=== PATIENT | female | born 1990 | race Caucasian/White ===

== ENCOUNTER → 2016-05-07 | Outpatient (CLI) | payer OTHER ==
[~2016-05-07] MED LIST: Gadobutrol 10 mMOL/10 ML SDV IVPUSH STA
--- NOTE | 2016-05-07 15:38 | MR ---
EXAMINATION: MRI lumbar spine with and without contrast HISTORY: Question Cauda equina COMPARISON: None TECHNIQUE: Multiplanar and multisequence images obtained through the lumbar spine before and followi ng the administration of Gadavist. FINDINGS: The lumbar spinal alignment is normal. The vertebral body heights and disc spaces appear w ell-maintained. There is likely a small focus enhancement noted within the distal spinal cord band straightener ior to T11, only partially imaged. The conus terminates at L1. The visualized retroperitoneal struct ures appear normal. No abnormal bone marrow signal. No significant disc bulge, spinal canal stenosis, neural foraminal stenosis. IMPRESSION: 1. Probable small focus of enhancement within the spinal cord posterior to T11. This is only include d on the sagittal images. This could represent a demyelinating process. Follow-up with MRI images of the thoracic and cervical spine may be beneficial.
--- NOTE | 2016-05-07 15:45 | MR ---
EXAMINATION: MRI of the brain with and without contrast. TECHNIQUE: Multiplanar and multisequence imaging of the brain without and following the administrati on of 6 mL of Gadavist. COMPARISON: 12/23/2013. HISTORY: Abnormal findings.. FINDINGS: Cerebral hemispheres and the deep nuclei are without hemorrhage, mass, edema, enhancement or atrophy . There are several small subtle areas of FLAIR signal abnormality within the periventricular white matter. These are subtle however several are new since the prior MRI. No enhancement or abnormal di ffusion restriction identified. No extraaxial collections or hemorrhage. The ventricular system is of normal size and configuration without hydrocephalus. The brainstem and cerebellum are without hemorrhage, mass, edema, gliosis, en hancement or atrophy. Carotid basilar artery flow voids are intact. The venous sinuses are patent. The otomastoid airspaces are clear. No internal auditory canal or cerebellopontine angle masses or enhancement. The paranasal sinuses are clear. Globes, optic nerves, orbital apices, optic chiasm, optic tracts, and visual cortices are unremarka ble. The pituitary and sella turcica are unremarkable. No meningeal enhancement. The craniocervical junction is unremarkable. No siderosis or evidence of vascular malformation. The calvarium is intact. IMPRESSION: 1. There are a few subtle periventricular white matter hypodensities, these have slightly increased in comparison to the previous MRI from 2003. A demyelinating process, such as MS, is a consideration . No abnormal enhancement to suggest active disease.
== END ==
LOC: MW.MRI 08:19
PROVIDERS: ATTEND Family Medicine
DX: R93.0 Abnormal findings on diagnostic imaging of skull and head, not elsewhere classified (principal); M62.81 Muscle weakness (generalized)
CPT/HCPCS: 70553; 72158; A9585

== ENCOUNTER → 2016-05-30 | Outpatient (CLI) | payer OTHER | LOC: MW.CHOBGYN 14:30 | PROVIDERS: ATTEND Nurse Practitioner Women's Health | DX: N94.9 Unspecified condition associated with female genital organs and menstrual cycle (principal) | CPT/HCPCS: 87480; 87510; 87660 ==

== ENCOUNTER 2016-08-14 20:59 | Emergency (ER) | payer OTHER ==
[2016-08-14] MEDS ORDERED: Sodium Chloride 0.9% 1,000 ML IV ONE (21:15)
[2016-08-14] MEDS ORDERED: Sodium Chloride 0.9% 10 ML Syringe FLUSH PRN ×2 (21:15→21:38)
[2016-08-14] MEDS ORDERED: Sodium Chloride 0.9% 2.5 ML Syringe FLUSH PRN ×2 (21:15→21:38)
--- NOTE | 2016-08-14 21:19 | EDM.PDOC ---
ED HPI GENERAL MEDICAL PROBLEM - General Chief Complaint: Headache Stated Complaint: PT HAS MIGRAINE Time Seen by Provider: 08/14/16 21:13 Source of Information: Reports: Patient History Limitations: Reports: No Limitations - History of Present Illness INITIAL COMMENTS - FREE TEXT/NARRATIVE: HISTORY AND PHYSICAL: [26-year-old female presenting with a headache that is worse when standing up than laying down] History of Present Illness: [Patient had a spinal tap yesterday, headaches began about 2 hours after the spinal tap. Patient called her neurologist today and was told to take some ibuprofen now for about an hour] Review of Systems: As per history of present illness and below otherwise all systems reviewed and negative. Past medical history: As per history of present illness and as reviewed below otherwise noncontributory. Surgical history: As per history of present illness and as reviewed below otherwise noncontributory. Social history: No reported history of drug or alcohol abuse. Family history: As per history of present illness and as reviewed below otherwise noncontributory. Physical exam: Alert and oriented female. pain 8-9/10. HEENT: Atraumatic, normocehpalic, pupils reactive, negative for conjunctival pallor or scleral icterus, mucous membranes moist, throat clear, neck supple, nontender, trachea midline. Lungs: Clear to auscultation, breath sounds equal bilaterally, chest non tender. Heart: S1S2, regular, negative for clicks, rubs, or JVD. Abdomen: Soft, nondistended, nontender. Negative for masses or hepatossplenmegaly. Negative for costovertebral tenderness. Pelvis: Stable nontender. Genitourinary: Deferred. Rectal: Deferred Extremities: Atraumatic, negative for cords or calf pain. Neurovascular unremarkable. Neuro: Awake, alert, oriented. Cranial nerves II through XII unremarkable. Cerebellum unremarkable. Motor and sensory unremarkable throughout. Exam nonfocal. Discussed case with Dr. Infante who is in agreement and anesthesia was notified. Vikash Mauricio CRNA was notified and he will come in and see this patient Diagnostics: [] Therapeutics: [IV fluid] Impression: [Headache post spinal tap] Plan: [Anesthesiology here for treatment of this headache] Definitive disposition and diagnosis as appropriate pending reevaluation and review of above. Onset: Today head Pain Score (Numeric/FACES): 8 - Related Data Allergies Allergy/AdvReac Type Severity Reaction Status Date / Time amoxicillin [Amoxicillin] Allergy Rash Verified 08/14/16 21:04 Penicillins Allergy Rash Verified 08/14/16 21:04 Home Meds: Home Meds ClonazePAM [KlonoPIN] 1 mg PO BEDTIME 12/13/13 [History] Norethindrone-E.estradiol-Iron [Lo Loestrin Fe 1-10] 1 each PO DAILY 12/13/13 [ History] Past Medical History HEENT History: Reports: None Cardiovascular History: Reports: None Respiratory History: Reports: None Gastrointestinal History: Reports: None Genitourinary History: Reports: None 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: Musculoskeletal History: Reports: None Neurological History: Reports: None Psychiatric History: Reports: None Endocrine/Metabolic History: Reports: None Hematologic History: Reports: None Dermatologic History: Reports: None - Infectious Disease History Infectious Disease History: Reports: Chicken Pox - Past Surgical History HEENT Surgical History: Reports: None Social & Family History - Family History Family Medical History: Noncontributory - Tobacco Use Smoking Status *Q: Current Every Day Smoker Years of Tobacco use: 12 Packs/Tins Daily: 1 Used Tobacco, but Quit: No Month Tobacco Last Used: November - Alcohol Use Days Per Week of Alcohol Use: 2 Number of Drinks Per Day: 1 Total Drinks Per Week: 2 - Recreational Drug Use Recreational Drug Use: No ED ROS GENERAL - Review of Systems Review Of Systems: ROS reveals no pertinent complaints other than HPI. - Physical Exam Exam: See Below Course - Vital Signs Last Recorded V/S: Last Vital Signs Temp 36.3 C 08/14/16 21:05 Pulse 105 H 08/14/16 21:05 Resp 18 08/14/16 21:05 BP 143/96 H 08/14/16 21:05 Pulse Ox 98 08/14/16 21:05 - Orders/Labs/Meds Orders: Active Orders 24 hr Category Date Time Status Verify Patient Consent Obtain [RC] ASDIRECTED Care 08/14/16 21:38 Active Sodium Chloride 0.9% [Normal Saline] 1,000 ml Med 08/14/16 21:15 Active IV STAT Sodium Chloride 0.9% [Saline Flush] Med 08/14/16 21:15 Active 10 ml FLUSH ASDIRECTED PRN Sodium Chloride 0.9% [Saline Flush] Med 08/14/16 21:38 Active 10 ml FLUSH ASDIRECTED PRN Sodium Chloride 0.9% [Saline Flush] Med 08/14/16 21:15 Active 2.5 ml FLUSH ASDIRECTED PRN Sodium Chloride 0.9% [Saline Flush] Med 08/14/16 21:38 Active 2.5 ml FLUSH ASDIRECTED PRN Medication Administration Instruction [OM.PC] Routine Oth 08/14/16 21:38 Ordered Peripheral IV Insertion Adult [OM.PC] Routine Oth 08/14/16 21:38 Ordered Saline Lock Insert [OM.PC] Stat Oth 08/14/16 21:14 Ordered Medication Orders Sodium Chloride (Normal Saline) 1,000 mls @ 999 mls/hr IV STAT ONE Stop: 08/14/16 22:15 Last Admin: 08/14/16 21:25 Dose: 999 mls/hr Sodium Chloride (Saline Flush) 10 ml FLUSH ASDIRECTED PRN PRN Reason: Keep Vein Open Sodium Chloride (Saline Flush) 2.5 ml FLUSH ASDIRECTED PRN PRN Reason: Keep Vein Open Sodium Chloride (Saline Flush) 10 ml FLUSH ASDIRECTED PRN PRN Reason: Keep Vein Open Sodium Chloride (Saline Flush) 2.5 ml FLUSH ASDIRECTED PRN PRN Reason: Keep Vein Open Labs: Laboratory Tests 08/14/16 Range/Units 21:23 Plt Count 255 (150-400) K/uL Meds: Medications Generic Name Dose Route Start Last Admin Trade Name Freq PRN Reason Stop Dose Admin Sodium Chloride 1,000 mls @ 999 mls/hr 08/14/16 21:15 08/14/16 21:25 Normal Saline IV 08/14/16 22:15 999 mls/hr STAT ONE Administration Sodium Chloride 10 ml 08/14/16 21:15 Saline Flush FLUSH ASDIRECTED PRN Keep Vein Open Sodium Chloride 2.5 ml 08/14/16 21:15 Saline Flush FLUSH ASDIRECTED PRN Keep Vein Open Sodium Chloride 10 ml 08/14/16 21:38 Saline Flush FLUSH ASDIRECTED PRN Keep Vein Open Sodium Chloride 2.5 ml 08/14/16 21:38 Saline Flush FLUSH ASDIRECTED PRN Keep Vein Open Departure - Departure Time of Disposition: 22:06 Disposition: Home, Self-Care 01 Condition: good Clinical Impression: Post-procedural headache Qualifiers: Encounter type: initial encounter Qualified Code(s): T81.89XA - Other complications of procedures, not elsewhere classified, initial encounter; R51 - Headache - Discharge Information Forms: ED Department Discharge Additional Instructions: The following information is given to patients seen in the emergency department who are being discharged to home. This information is to outline your options for follow-up care. We provide all patients seen in our emergency department with a follow-up referral. The need for follow-up, as well as the timing and circumstances, are variable depending upon the specifics of your emergency department visit. If you don't have a primary care physician on staff, we will provide you with a referral. We always advise you to contact your personal physician following an emergency department visit to inform them of the circumstance of the visit and for follow-up with them and/or the need for any referrals to a consulting specialist. The emergency department will also refer you to a specialist when appropriate. This referral assures that you have the opportunity for followup care with a specialist. All of these measure are taken in an effort to provide you with optimal care, which includes your followup. Under all circumstances we always encourage you to contact your private physician who remains a resource for coordinating your care. When calling for followup care, please make the office aware that this follow-up is from your recent emergency room visit. If for any reason you are refused follow-up, please contact the [facility] emergency department at and asked to speak to the emergency department charge nurse. Instructions as per anesthesia - My Orders Last 24 Hours: My Active Orders 08/14/16 21:14 Saline Lock Insert [OM.PC] Stat 08/14/16 21:15 Sodium Chloride 0.9% [Normal Saline] 1,000 ml IV STAT Sodium Chloride 0.9% [Saline Flush] 10 ml FLUSH ASDIRECTED PRN Sodium Chloride 0.9% [Saline Flush] 2.5 ml FLUSH ASDIRECTED PRN - Assessment/Plan Last 24 Hours: My Active Orders 08/14/16 21:14 Saline Lock Insert [OM.PC] Stat 08/14/16 21:15 Sodium Chloride 0.9% [Normal Saline] 1,000 ml IV STAT Sodium Chloride 0.9% [Saline Flush] 10 ml FLUSH ASDIRECTED PRN Sodium Chloride 0.9% [Saline Flush] 2.5 ml FLUSH ASDIRECTED PRN
--- NOTE | 2016-08-14 21:48 | PCM.SN ---
- Free Text/Narrative Note: Called by ER, pt arrived with complaints of JAMES. Pt reports that she had a spinal tap performed yesterday and developed a headache about two hours after the procedure. Pt reports her headache gets significantly worse when standing and somewhat better when laying down. She also reports some mild photophobia at this time. Allergies: PCN, amoxicillin Home RX: Klonopin at [facility] - reviewed PMH: Currently being worked up for MS. Negative for CV, Pulm, GI, , Liver, Pancreas, Thyroid disease. Explained to pt that this is likely a spinal headache. Explained blood patch procedure including risks and benefits. Pt wishes to proceed at this time.
--- NOTE | 2016-08-14 22:51 | PCM.SN ---
- Free Text/Narrative Note: Procedure Note Epidural Blood Patch After informed consent was obtained. Pt was placed Right lateral position. Using sterile technique, pt was prepped using betadine, sterile drape was placed. Spine was palpated and L3-4 was identified. 1% Lidocaine was infiltrated. 17g Touhy needle was introduced using loss of resistance technique. At 6 cm of depth loss of resistance was obtained. Then 10mL of venous blood was obtained sterilely by Dr. Aguayo and 6mL of arterial blood was obtained sterilely by Rere Mauricio CRNA that was injected through the epidural needle. All aspects of the procedure were completed while maintaining strict sterile technique. At the conclusion of the procedure that pt notes that in the supine position she no longer has a headache and her photophobia has resolved. Pt tolerated all aspects of the procedure well. VSS throughout as well.
[2016-08-14 23:11] VITALS: BP 120/75
== END 2016-08-14 23:09 | disposition home or self-care (01) ==
LOC: MW.ED 20:59
DX: G97.1 Other reaction to spinal and lumbar puncture (principal); Z98.890 Other specified postprocedural states; F17.210 Nicotine dependence, cigarettes, uncomplicated; Z88.0 Allergy status to penicillin; Z88.1 Allergy status to other antibiotic agents
CPT/HCPCS: 36415; 85049; 96360; 96361; 99284; J7040; 99283

== ENCOUNTER 2018-11-18 16:01 | Emergency (ER) | payer OTHER ==
--- NOTE | 2018-11-18 16:12 | EDM.PDOC ---
ED HPI GENERAL MEDICAL PROBLEM - General Chief Complaint: Cardiovascular Problem Stated Complaint: EKG WAS WEIRD FROM THE DOCTOR'S OFFICE Time Seen by Provider: 11/18/18 16:05 Source of Information: Reports: Patient History Limitations: Reports: No Limitations - History of Present Illness INITIAL COMMENTS - FREE TEXT/NARRATIVE: HISTORY AND PHYSICAL: History of present illness: Patient is a 28-year-old female presenting to the emergency room with complaints of chest pain, left shoulder pain, and upper left back pain. She states that she was informed to present to the emergency room at her appointment with Dr. Aparicio at [facility] this afternoon due to an abnormal EKG showing sinus tachycardia. She states that she is not currently having chest pain, however after using a wheelbarrow that tipped over 3 weeks ago, one week later she started having chest pain that goes into her shoulder, down her arm and hands, into her left ribs, and up into her back. She denies numbness, tingling, nausea, vomiting, dizziness, abdominal pain, or shortness of breath. She states that the pain is increased when she is active, but resting alleviates the pain. Review of systems: As per history of present illness and below otherwise all systems reviewed and negative. Past medical history: As per history of present illness and as reviewed below otherwise noncontributory. Surgical history: As per history of present illness and as reviewed below otherwise noncontributory. Social history: See social history for further information Family history: As per history of present illness and as reviewed below otherwise noncontributory. Physical exam: General: Patient is a well-nourished and well-developed 28-year-old female. She is alert and orientated. Nontoxic in appearance. HEENT: Atraumatic, normocephalic, pupils equal and reactive bilaterally, negative for conjunctival pallor or scleral icterus, mucous membranes moist, TMs normal bilaterally, throat clear, neck supple, nontender, trachea midline. No drooling or trismus noted. No meningeal signs. No hot potato voice noted. Lungs: Clear to auscultation, breath sounds equal bilaterally, chest nontender. Heart: S1S2, regular rate and rhythm without overt murmur Abdomen: Soft, nondistended, nontender. Negative for masses or hepatosplenomegaly. Negative for costovertebral tenderness. Skin: Intact, warm, dry. No lesions or rashes noted. Back: Tenderness on the posterior, left side of the back, inferior to the scapula. Extremities: Atraumatic, moves all extremities per self without difficulty or deficits, negative for cords or calf pain. Neurovascular unremarkable. Neuro: Awake, alert, oriented. Cranial nerves II through XII unremarkable. Cerebellum unremarkable. Motor and sensory unremarkable throughout. Exam nonfocal. Notes: Diagnostics were unremarkable. All findings were shared with the patient. Did offer her Flexeril and diclofenac as this does sound muscular in nature. She declines. Supportive care measures were reviewed and discussed. Voices understanding and is agreeable to plan of care. Denies any further questions or concerns at this time. Diagnostics: CBC, CMP, TSH, EKG, chest x-ray, urine test Therapeutics: IV Fluid Prescription: Declines Impression: Chest pain, nonspecific Plan: 1. You may alternate ice and/or heat as needed for discomfort. Gentle stretching. Limit your vigorous activity to allow her body to rest/recover. 2. Tylenol and/or ibuprofen as needed for pain management. 3. Follow-up with your primary care provider as we discussed. Return to the ED as needed and as discussed. Definitive disposition and diagnosis as appropriate pending reevaluation and review of above. L chest arm and back Pain Score (Numeric/FACES): 1 - Related Data Allergies Allergy/AdvReac Type Severity Reaction Status Date / Time amoxicillin [Amoxicillin] Allergy Rash Verified 11/18/18 16:28 Penicillins Allergy Rash Verified 11/18/18 16:28 Home Meds: Home Meds . 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 ED EXAM, GENERAL - Physical Exam Exam: See Below (See dictation) Course - Vital Signs Last Recorded V/S: Last Vital Signs Temp 97.8 F 11/18/18 16:24 Pulse 99 11/18/18 16:24 Resp 18 11/18/18 16:24 BP 138/97 H 11/18/18 16:24 Pulse Ox 98 11/18/18 16:24 - Orders/Labs/Meds Orders: Active Orders 24 hr Category Date Time Status EKG Documentation Completion [RC] STAT Care 11/18/18 16:20 Active Labs: Laboratory Tests 11/18/18 11/18/18 11/18/18 Range/Units 16:15 16:15 16:30 WBC 10.62 (4.0-11.0) K/uL RBC 4.52 (4.30-5.90) M/uL Hgb 13.7 (12.0-16.0) g/dL Hct 40.2 (36.0-46.0) % MCV 88.9 (80.0-98.0) fL MCH 30.3 (27.0-32.0) pg MCHC 34.1 (31.0-37.0) g/dL RDW Std Deviation 39.9 (28.0-62.0) fl RDW Coeff of Kaiser 13 (11.0-15.0) % Plt Count 211 (150-400) K/uL MPV 9.90 (7.40-12.00) fL Neut % (Auto) 74.4 (48.0-80.0) % Lymph % (Auto) 14.5 L (16.0-40.0) % [place] % (Auto) 9.3 (0.0-15.0) % Eos % (Auto) 1.5 (0.0-7.0) % Baso % (Auto) 0.3 (0.0-1.5) % Neut # (Auto) 7.9 H (1.4-5.7) K/uL Lymph # (Auto) 1.5 (0.6-2.4) K/uL [place] # (Auto) 1.0 H (0.0-0.8) K/uL Eos # (Auto) 0.2 (0.0-0.7) K/uL Baso # (Auto) 0.0 (0.0-0.1) K/uL Nucleated RBC % 0.0 /100WBC Nucleated RBCs # 0 K/uL Sodium 140 (136-145) mmol/L Potassium 3.2 L (3.5-5.1) mmol/L Chloride 102 (98-107) mmol/L Carbon Dioxide 27.6 (21.0-32.0) mmol/L BUN 12 (7.0-18.0) mg/dL Creatinine 0.9 (0.6-1.0) mg/dL Est Cr Clr Drug Dosing 80.36 mL/min Estimated GFR (MDRD) > 60.0 ml/min Glucose 86 (74-106) mg/dL Calcium 8.8 (8.5-10.1) mg/dL Total Bilirubin 0.4 (0.2-1.0) mg/dL AST 16 (15-37) IU/L ALT 20 (14-63) IU/L Alkaline Phosphatase 66 (46-116) U/L Total Protein 7.7 (6.4-8.2) g/dL Albumin 4.3 (3.4-5.0) g/dL Globulin 3.4 (2.6-4.0) g/dL Albumin/Globulin Ratio 1.3 (0.9-1.6) TSH 3rd Generation 1.36 (0.36-3.74) uIU/mL Urine HCG, Qual NEGATIVE (NEGATIVE) Meds: Medications Discontinued Medications Generic Name Dose Route Start Last Admin Trade Name Freq PRN Reason Stop Dose Admin Sodium Chloride 1,000 mls @ 999 mls/hr 11/18/18 16:29 11/18/18 16:45 Normal Saline IV 11/18/18 17:29 999 mls/hr STAT ONE Administration Departure - Departure Time of Disposition: 18:24 Disposition: Home, Self-Care 01 Clinical Impression: Nonspecific chest pain Instructions: Nonspecific Chest Pain, [id number] Referrals: Clara Aparicio MD [Primary Care Provider] - Forms: ED Department Discharge Additional Instructions: The following information is given to patients seen in the emergency department who are being discharged to home. This information is to outline your options for follow-up care. We provide all patients seen in our emergency department with a follow-up referral. The need for follow-up, as well as the timing and circumstances, are variable depending upon the specifics of your emergency department visit. If you don't have a primary care physician on staff, we will provide you with a referral. We always advise you to contact your personal physician following an emergency department visit to inform them of the circumstance of the visit and for follow-up with them and/or the need for any referrals to a consulting specialist. The emergency department will also refer you to a specialist when appropriate. This referral assures that you have the opportunity for follow-up care with a specialist. All of these measure are taken in an effort to provide you with optimal care, which includes your follow-up. Under all circumstances we always encourage you to contact your private physician who remains a resource for coordinating your care. When calling for follow-up care, please make the office aware that this follow-up is from your recent emergency room visit. If for any reason you are refused follow-up, please contact the [facility] Emergency Department at and asked to speak to the emergency department charge nurse. [facility] [address] [place], [place] [id number] [facility] [address] [place] [address] 1. You may alternate ice and/or heat as needed for discomfort. Gentle stretching. Limit your vigorous activity to allow her body to rest/recover. 2. Tylenol and/or ibuprofen as needed for pain management. 3. Follow-up with your primary care provider as we discussed. Return to the ED as needed and as discussed. - My Orders Last 24 Hours: My Active Orders 11/18/18 16:20 EKG Documentation Completion [RC] STAT - Assessment/Plan Last 24 Hours: My Active Orders 11/18/18 16:20 EKG Documentation Completion [RC] STAT
[2018-11-18] MEDS ORDERED: Sodium Chloride 0.9% 1,000 ML IV ONE (16:29)
[2018-11-18 17:01] LABS: BLOOD UREA NITROGEN,BUN 12 mg/dL (7.0-18.0); CARBON DIOXIDE,CO2 27.6 mmol/L (21.0-32.0); CHLORIDE,CL 102 mmol/L (98-107); GLUCOSE RANDOM 86 mg/dL (74-106); POTASSIUM,K 3.2 mmol/L (3.5-5.1); SODIUM,NA 140 mmol/L (136-145)
--- NOTE | 2018-11-18 18:06 | CR ---
INDICATION: chest pain COMPARISON: None. FINDINGS: PA and lateral views of the chest demonstrate adequate inflation of the lungs. No focal airspace consolidation, pneumothorax or effusion. Cardiomediastinal silhouette is within normal limits. There are no acute osseous findings. IMPRESSION: No acute cardiopulmonary findings. Dictated by Arias Ruvalcaba MD @ 11/18/2018 6:06:31 PM Dictated by: Arias Ruvalcaba MD @ 11/18/2018 18:06:36 (Electronically Signed)
[2018-11-18 18:41] VITALS: BP 124/80; PULSE 99
== END 2018-11-18 18:42 | disposition home or self-care (01) ==
LOC: MW.ED 16:01
DX: R07.9 Chest pain, unspecified (principal); M54.6 Pain in thoracic spine; M25.512 Pain in left shoulder; Z88.0 Allergy status to penicillin; Z88.1 Allergy status to other antibiotic agents
CPT/HCPCS: 71046; 80053; 81025; 84443; 85025; 93005; 96360; 99285; J7040